=== PATIENT | male | born 1955 | race Caucasian/White ===

== ENCOUNTER 2017-11-30 12:36 | Observation (INO) | payer MEDICARE ==
[2017-11-30 12:54] VITALS: BMI 25.0
[2017-11-30 13:52] LABS: BASO # 0.1 K/uL (0.0-0.2); BASO % 0.9 % (0.0-2.0); HEMOGLOBIN 12.4 g/dL (12.0-18.0); LYMPH # 1.9 K/uL (1.0-4.3); LYMPH % 25.3 % (20.0-40.0); MEAN CELL VOLUME 87.1 fL (80.0-94.0); MEAN CORPUSCULAR HEMOGLOBIN 29.8 pg (27.0-31.0); MEAN CORPUSCULAR HGB CONC 34.3 g/dL (33.0-37.0); MEAN PLATELET VOLUME 9.1 fL (7.2-11.7); MONO # 0.9 K/uL (0.0-0.8); MONO % 12.4 % (0.0-10.0); NEUT # 4.6 K/uL (1.8-7.0); NEUT % 61.4 % (50.0-75.0); RBC 4.15 Mil/uL (4.40-5.90); RED CELL DISTRIBUTION WIDTH 13.7 % (11.5-14.5); WHITE BLOOD COUNT 7.5 K/uL (4.8-10.8)
[2017-11-30 14:01] LABS: INR 1.1; PROTHROMBIN TIME 12.1 SECONDS (9.7-12.2)
[2017-11-30 14:07] LABS: BLOOD UREA NITROGEN 15 mg/dL (9-20); CALCIUM 8.9 mg/dl (8.6-10.4); GFR AFRICAN-AMERICAN > 60; GFR NON-AFRICAN AMERICAN > 60
[2017-11-30] MEDS ORDERED: Ciprofloxacin 400mg/200ml D5W 400 MG/200 ML BAG IVPB ONE (16:04)
[2017-11-30] MEDS ORDERED: Lidocaine 2% Jelly (Uro-Jet) ONE (16:05)
[2017-11-30] MEDS ORDERED: Midazolam 2 MG/2 ML VIAL ONE (16:11)
[2017-11-30] MEDS ORDERED: Propofol 10 mg/ml Inj (20 ML) ONE (16:13)
[2017-11-30] MEDS ORDERED: Ciprofloxacin 400mg/200ml D5W 400 MG/200 ML BAG IVPB SCH (17:00)
[2017-11-30] MEDS: HYDROmorphone 0.5 mg/0.5 ml ISec IVP PRN ×2 (17:29→18:08)
[2017-11-30] MEDS ORDERED: Oxycodone/Acetaminophen 5/325 mg Tab PO PRN (18:38)
[2017-12-01] MEDS ORDERED: Ciprofloxacin 400mg/200ml D5W 400 MG/200 ML BAG IVPB SCH (04:00)
--- NOTE | 2017-12-01 07:32 | HP ---
UROLOGY ADMISSION HISTORY AND PHYSICAL REASON FOR ADMISSION: Gross hematuria. HISTORY OF PRESENT ILLNESS: Mr. Duran is a very pleasant 62-year-old gentleman, has a complicated medical history and urologic history. He previously got a TURP years back by another urologist. Most recently, now he presents with gross hematuria. We did a cystoscope, and we found abnormal bladder mucosa, right at the bladder neck, very difficult to assess whether this is just a scar tissue; whether or not this is a bladder malignancy, whether this is just prostatic over growth with an intravascular component, that was difficult to assess, and he is here today for resection of this area, but it is definitely what looks like the source of bleeding. We met the patient on Monday. We tried doing a CT scan but it was not bleeding. We got him in today for an urgent cysto and a TUR bladder tumor. PAST MEDICAL AND SURGICAL HISTORY: He has a history of colon cancer. We had a colostomy, some kind of device that was then reversed. He apparently had some kind of underlying cancer but he has been [facility] for greater than 10 to 15 years. He has no history of an [place], CVA. His medical doctor is Dr. Guadarrama. REVIEW OF SYSTEMS: No weight loss, chest pain, shortness of breath. No constitutional complaints, night sweats, etc. SOCIAL HISTORY: Essentially unremarkable. He is originally from [place]. He has been in this country, since he is 8 years old. He went to elementary school, high school here, in [place]. Actually, he says he lives in the same home that he grew up. MEDICATIONS: See chart. PHYSICAL EXAMINATION GENERAL: A well-developed, well-nourished male in no apparent distress. VITAL SIGNS: Within normal limits and included in the chart. HEENT: Sclerae nonicteric and not injected. No cervical or axillary adenopathy. LUNGS: Clear. HEART: Normal S1, S2. ABDOMEN: Overall soft, nontender. No flank masses. GENITOURINARY: Normal male phallus without discharge. No testicular mass. RECTAL: Deferred 20 to 30 gm prostate. LABS: See chart. BUN and creatinine noted. PSA noted. DIAGNOSES: 1. Gross hematuria. 2. Bladder mass. ASSESSMENT AND PLAN: A very pleasant gentleman. He is 62 years old. He has a complicated history with history of colon cancer. He had reversal of his colostomy. Of note, he is here today for a TURBT. It is possible it is a TURP. I have to see further when we make arrangements. PLAN: As follows: 1. Antibiotic prophylaxis. 2. Cystoscopy. 3. Resection of tumor. 4. Further plans, we will follow. ADDENDUM: See the operative note, but basically, it was an extension of the above mass at the bladder neck, and see the body of the report for this. We will see. The patient did not feel comfortable going home with an indwelling Taylor catheter. We left a 20-[place] Taylor catheter, and we admitted the patient to hospital. See the operative note. But basically in the postop period, there was blood-tinged urine. The patient was stable, vital signs were fine. The patient was a little concerned about going home with Taylor, so we admitted him for observation and then further plans can follow. Rusty Carter MD
--- NOTE | 2017-12-01 08:11 | PCM.URO ---
Urology Progress Note - Objective Lab Studies: Reviewed (blood tingd urine normal discontinue romero and discharge home) Lab Results Last 24 Hours: Laboratory Results - last 24 hr 11/30/17 11/30/17 11/30/17 13:44 13:44 13:44 WBC 7.5 RBC 4.15 L Hgb 12.4 Hct 36.2 MCV 87.1 MCH 29.8 MCHC 34.3 RDW 13.7 Plt Count 239 MPV 9.1 Neut % (Auto) 61.4 Lymph % (Auto) 25.3 Delta % (Auto) 12.4 H Eos % (Auto) 0.0 Baso % (Auto) 0.9 Neut # (Auto) 4.6 Lymph # (Auto) 1.9 Delta # (Auto) 0.9 H Eos # (Auto) 0.0 Baso # (Auto) 0.1 PT 12.1 INR 1.1 APTT 40 H Sodium 143 Potassium 3.5 L Chloride 105 Carbon Dioxide 28 Anion Gap 14 BUN 15 Creatinine 0.9 Est GFR ( Amer) > 60 Est GFR (Non-Af Amer) > 60 Random Glucose 93 Calcium 8.9 Intake & Output: Intake & Output 11/30/17 12/01/17 12/01/17 18:59 06:59 18:59 Intake Total 750 300 Output Total 300 400 Balance 450 -100 Weight 155 lb Intake: IV 750 Oral 300 Output: Urine 300 400 Urethral (Romero) 400 Other: Voiding Method Toilet Vital Signs: Vital Signs - 24 hr 11/30/17 11/30/17 11/30/17 14:00 16:50 17:05 Temperature 99.3 F 99.4 F Pulse Rate 74 60 60 Respiratory 18 11 L 10 L Rate Blood Pressure 144/76 123/62 117/69 O2 Sat by Pulse 98 98 100 Oximetry 11/30/17 11/30/17 11/30/17 17:20 17:35 17:50 Temperature Pulse Rate 68 66 63 Respiratory 17 16 18 Rate Blood Pressure 148/65 139/70 134/76 O2 Sat by Pulse 100 99 99 Oximetry 11/30/17 11/30/17 11/30/17 18:05 18:20 18:50 Temperature 98.5 F 97.8 F Pulse Rate 69 67 68 Respiratory 14 20 20 Rate Blood Pressure 142/76 148/82 149/87 O2 Sat by Pulse 99 99 97 Oximetry 11/30/17 12/01/17 21:05 00:00 Temperature 98.2 F Pulse Rate 74 Respiratory 20 Rate Blood Pressure 113/63 O2 Sat by Pulse 98 98 Oximetry
[2017-12-01 08:27] VITALS: BP 143/81; PULSE 84; RESP 2; TEMP 98.4; O2SAT 97
--- NOTE | 2017-12-01 08:31 | OP ---
PROCEDURE DATE: 11/30/2017 PREOPERATIVE DIAGNOSIS: Gross hematuria, urinary retention, voiding dysfunction. POSTOPERATIVE DIAGNOSIS: Gross hematuria, urinary retention, voiding dysfunction, bladder neck mass. See the pictures and see the details further. COMPLICATIONS: There were no complications. BLOOD LOSS: Less than 10 mL. At the termination of the procedure, we left the Taylor catheter indwelling with a mild traction with about 50 mL in the balloon. We left a 2-way Taylor catheter. It was relatively clear. There were no complications. INDICATIONS: A very pleasant gentleman here for the above procedure. UROLOGY FINDINGS: 1. No stricture. 2. The verumontanum is somewhat occlusive. 3. on the patient's left side, on the right side of the screen, there is some kind of bladder lesion. It is a wide extension, extending beyond the bladder, right at the bladder neck junction. It is definitely asymmetric, though comparing the left and right side. It is difficult to see ureteral orifice but this is all anterior, right at the bladder neck. It cannot be near the orifices, but it looks like fluffy, although intravesical prostatic tissue. We will await to see other people's response. See below plan. No other abnormalities are easily appreciated. The rectal exam is done, 20 to 30 gm prostate, soft and smooth. Everything else is otherwise unremarkable. DIAGNOSES: 1. Gross hematuria. 2. Bladder lesion. 3. Possible prostate cancer. PLAN: As follows: 1. We brought the patient in today. We will continue with the antibiotics but we brought the patient in for a TUR bladder tumor or TURP or TUR of the bladder neck. We will see what the mass shows and then further plans, we will follow. 2. We discussed the options at length. 3. We are going to plan to proceed with a TURBT. Further plans, we will follow. Rusty Carter MD
--- NOTE | 2017-12-01 12:03 | OP ---
PROCEDURE DATE: 11/30/2017 PREOPERATIVE DIAGNOSES: Gross hematuria, bladder neck mass, bladder mass. POSTOPERATIVE DIAGNOSES: Gross hematuria, bladder neck mass, bladder mass. PROCEDURES: Cystoscopy, transurethral resection of the bladder tumor. COMPLICATIONS: There were no complications. BLOOD LOSS: Less than 25 mL. DRAINS: A Taylor catheter. We left a 20-Greek Taylor catheter with a mild amount of traction and no continuous bladder irrigation. SPECIMEN SENT DOWN: This mass. I think after doing this, I am more convinced that it is an intravesical component to the prostate. Again, the patient reports he had a previous TURP. This seems to be some abnormal tissue. It also seems to be the source of bleeding. INDICATIONS FOR PROCEDURE: See the history and physical for the details. A very pleasant gentleman, he came in with gross hematuria on Monday. We did this workup as quickly as possible. We tried arranging for a cath, and I actually called myself to begin him on a schedule on Monday for a CAT scan, so I can have upper track imaging. After doing this procedure and previous other procedures, I think the source of bleeding is there, I cannot be sure as of now that it crossed the upper tract, so we are going to work him on getting a CAT scan of the abdomen and pelvis, finish his schedule for once, but was not able to get it prior today. His ongoing was concerning to him and he is very unhappy and he would like to have actually done it even yesterday, on 11/29/2017, but due to the nature of the holiday, we made arrangements for emergency room. I met the patient again on 11/28/2017 and he came back on 11/30/2017. FINDINGS: 1. Anterior urethra normal. 2. The verumontanum is not completely wide open but definitely not need of tissue. Of note is along the patient's left side along the right side of the camera, bladder neck, there is a mass like, whether this is old scar tissue, whether this is just growth of prostate ( my suspicion is that it is just an intravesical component of prostate, actually like prostate. It is not papillary at all. We will have pictures taken of this as well. There is one image that looks a little bit erythematous, papillary, mostly concerned about it. At the termination of the procedure, there is still some tissue that is not normal but my suspicion is going to be prostatic in origin and I was not comfortable to scope down to the bottom without knowing what the mass is, but we are sure there are obvious scar tissue. There are definitely no other visible bladder lesions. Ureteral orifice is hard to see, but I cannot confirm, particularly on the left side, but is on the right side. DESCRIPTION OF PROCEDURE: After obtaining informed consent, the patient was placed on the table. Routine monitor was placed. Time-out was called to confirm the patient and positioning. We introduced a resectoscope under direct vision. We identified this lesion and this is exactly what we saw in the office. Along the patient's left side, along the right side of the camera, it looks to be edematous and erythematous. I am not sure where the bleeding is coming from. What I did was, we began our resection, we set the cautery settings at 180/80, and we began carefully, slowly, meticulously taking up piece by piece at a time. We made sure that we are not going posteriorly anywhere near the orifices. There are no other abnormalities detected. It appears to be a solid vascular, but it cut very well and I cauterized it very well. It looks to be by cutting nature either an extremely high-grade urothelial carcinoma or more likely an extension of the prostate and then it may be just BPH. We are careful, we will set many portions of this in a systematic fashion. We will never go posterior. At the termination, as well, I removed most of the tissue, although there is still some posterior wall tissue. There is picture taken. I inserted a Taylor catheter by the urethra and put it on traction, very mild, and irrigates clearly, used the 2-way catheter. The patient has aforementioned rectal exam. The patient tolerated the procedure without complication. Rusty Carter MD
--- NOTE | 2017-12-02 04:27 | DS ---
See the history and physical, operative notes, progress note, and multiple orders in the chart. The patient is admitted for removal of a bladder mass, TURBT. See the previously dictated TURBT note. Postop, the patient remained in the hospital, so we can monitor him more closely. He does have blood-tinged urine removing the Taylor catheter, and the patient is safe for discharge home. Further plan will follow depending on the pathology. The patient is discharged home in stable condition with the plan. He notes, he has a pathology pending and will come to the office for followup and I will discuss further plans. As mentioned previously, we will also do an upper tract study with CT scan of abdomen and pelvis and further plans to follow. Rusty Carter MD
--- NOTE | 2017-12-03 21:31 | CARD ---
APPROVED REPORT EKG Measurement Heart [id number] <Conclusion> Normal sinus rhythm Poor R wave progression V1 - V2. Probably misplaced electrodes Abnormal ECG Please repeat
== END 2017-12-01 09:28 | disposition home or self-care (01) ==
LOC: C.SDS 12:36 → C.9S 16:56 → C.3T 18:25
PROVIDERS: ADMIT Urology; ATTEND Urology
DX: N32.89 Other specified disorders of bladder (principal); R31.0 Gross hematuria; R33.9 Retention of urine, unspecified; Z85.038 Personal history of other malignant neoplasm of large intestine
CPT/HCPCS: 36415; 52500; 80048; 85025; 85610; 85730; 88305; 93005; A4322; C1887; G0378; J0744; J1170